=== PATIENT | female | born 1940 | race Caucasian/White ===

== ENCOUNTER → 2017-03-22 | Outpatient (CLI) | payer OTHER ==
[~2017-03-22] MED LIST: ASPIR 8181 MG PO; B COMPLEX1 EACH PO; BENAZEPRIL 10 M10 MG PO; GLUCOSAMINE CO1 EAC4 PO; LEVOTHYROXINE0.05 MG PO; VITAMIN D31000 UNI2 PO; ZOCOR20 MG PO
== END ==
LOC: RAD 08:09
DX: Z12.31 Encounter for screening mammogram for malignant neoplasm of breast (principal)

== ENCOUNTER → 2018-04-10 | Outpatient (CLI) | payer OTHER | LOC: RAD 01:15 | DX: Z12.31 Encounter for screening mammogram for malignant neoplasm of breast (principal) ==

== ENCOUNTER → 2019-04-11 | Outpatient (CLI) | payer OTHER | LOC: BC 12:40 | DX: Z12.31 Encounter for screening mammogram for malignant neoplasm of breast (principal) ==

== ENCOUNTER → 2019-05-24 | Outpatient (CLI) | payer OTHER | LOC: NUC 11:05 | DX: N91.2 Amenorrhea, unspecified (principal); M47.816 Spondylosis without myelopathy or radiculopathy, lumbar region; Z78.0 Asymptomatic menopausal state ==

== ENCOUNTER → 2020-04-16 | Outpatient (CLI) | payer OTHER | LOC: BC 12:12 | PROVIDERS: ATTEND Internal Medicine | DX: Z12.31 Encounter for screening mammogram for malignant neoplasm of breast (principal) ==

== ENCOUNTER → 2021-05-04 | Outpatient (CLI) | payer OTHER | LOC: BC 12:07 | PROVIDERS: ATTEND Internal Medicine | DX: Z12.31 Encounter for screening mammogram for malignant neoplasm of breast (principal); N64.59 Other signs and symptoms in breast ==